=== PATIENT | female | born 2000 | race Caucasian/White ===

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

== ENCOUNTER 2018-03-13 21:06 | Emergency (ER) | payer BC, OTHER ==
[2018-03-13 21:24] VITALS: BP 130/86
--- NOTE | 2018-03-13 21:38 | UC ---
Throat Pain/Nasal Bradley HPI - HPI Summary HPI Summary: The patient is a 18-year-old female who 2 days ago noticed some swollen glands ( left posterior cervical). His had no fever. Today she developed a sore throat. She has had some mild fatigue. She denies any nausea vomiting or diarrhea. She hAs no abdominal pain. She has no joint pains or myalgias. She has never had mono. - History of Current Complaint Chief Complaint: UCRespiratory Stated Complaint: SORE THROAT,SWOLLEN GLANDS Time Seen by Provider: 03/13/18 21:09 Hx Obtained From: Patient Hx Last Menstrual Period: 1.5 months ago Onset/Duration: Sudden Onset, Lasting Days Severity: Mild Pain Intensity: 4 Pain Scale Used: 0-10 Numeric Cough: None - Allergies/Home Medications Allergies/Adverse Reactions: Allergies Allergy/AdvReac Type Severity Reaction Status Date / Time No Known Allergies Allergy Verified 03/13/18 21:18 Home Medications: Home Medications Norethindrone-E.estradiol-Iron [Minastrin 24 Fe 1-20 mg-Mcg(24)] 1 chw PO DAILY 03/13/18 [History Confirmed 03/13/18] PMH/Surg Hx/FS Hx/Imm Hx Previously Healthy: Yes - Surgical History Surgical History: None Surgery Procedure, Year, and Place: none - Family History Known Family History: Positive: Hypertension - Social History Alcohol Use: Rare Substance Use Type: Marijuana Substance Use Comment - Amount & Last Used: occasional Smoking Status (MU): Never Smoked Tobacco Review of Systems Constitutional: Fatigue Skin: Negative Eyes: Negative ENT: Sore Throat Respiratory: Negative Cardiovascular: Negative Gastrointestinal: Negative Genitourinary: Negative Motor: Negative Neurovascular: Negative Musculoskeletal: Negative Neurological: Negative Psychological: Negative Is Patient Immunocompromised?: No All Other Systems Reviewed And Are Negative: Yes Physical Exam Triage Information Reviewed: Yes Appearance: Well-Appearing, No Pain Distress, Well-Nourished Vital Signs: Initial Vital Signs Temp 98.5 F 03/13/18 21:20 Pulse 93 03/13/18 21:20 Resp 18 03/13/18 21:20 BP 130/86 03/13/18 21:20 Pulse Ox 100 03/13/18 21:20 Vital Signs Reviewed: Yes Eyes: Positive: Conjunctiva Clear ENT: Positive: Hearing grossly normal, Pharyngeal erythema, TMs normal, Tonsillar swelling. Negative: Nasal congestion, Nasal drainage, Tonsillar exudate, Trismus, Muffled voice, Hoarse voice, Dental tenderness, Sinus tenderness, Uvula midline, Other Neck: Positive: Supple, Tenderness @, Enlarged Nodes @ - Left ant and post cerv> right Respiratory: Positive: Lungs clear, Normal breath sounds, No respiratory distress Cardiovascular: Positive: RRR, No Murmur Abdomen Description: Positive: Nontender, No Organomegaly. Negative: CVA Tenderness (R), CVA Tenderness (L), Distended, Guarding Bowel Sounds: Positive: Present Musculoskeletal: Positive: ROM Intact, No Edema Neurological: Positive: Alert Skin Exam: Normal Diagnostics - Laboratory Diagnostic Studies Completed/Ordered: strep (-) Throat Pain/Nasal Course/Dx - Differential Dx/Diagnosis Provider Diagnoses: viral tonsillitis Discharge - Sign-Out/Discharge Documenting (check all that apply): Patient Departure All imaging exams completed and their final reports reviewed: No Studies - Discharge Plan Condition: Stable Disposition: HOME Patient Education Materials: Tonsillitis (ED) Forms: *School Release Referrals: [facility] [Primary Care Provider] - 6 Days Additional Instructions: Your strep test was NEGATIVE The pattern of swollen glands you have is consistent with a viral tonsillitis MONO is one virus that can do this I suggest you consider getting this rechecked in 4-6 days. I think it would be premature to test you for mono today recheck sooner for worsening or new symptoms rest fluids tylenol or advil if needed - Billing Disposition and Condition Condition: STABLE Disposition: Home
== END 2018-03-13 22:00 | disposition home or self-care (01) ==
LOC: UCEAST 21:06
DX: J03.90 Acute tonsillitis, unspecified (principal)
CPT/HCPCS: 87651; 99211; G0463